=== PATIENT | male | born 1935 | race African-American/Black ===

== ENCOUNTER 2017-09-27 05:53 | Inpatient (IN) ==
[2017-09-28 11:55] VITALS: BP 135/69
== END 2017-09-28 13:45 | disposition home health service (06) | DRG 483 ==
LOC: N.OR 05:53 → N.SDSINP 05:55 → N.3E 07:21
PROVIDERS: ADMIT Orthopaedic Surgery; ATTEND Orthopaedic Surgery

== ENCOUNTER 2022-04-21 03:34 | Inpatient (IN) ==
[2022-04-21] MEDS ORDERED: SODIUM CHLORIDE 0.9% 1,000 ML IV STA (03:53)
[2022-04-21] MEDS ORDERED: PANTOPRAZOLE 40 MG VIAL IV STA (03:53)
[2022-04-21] MEDS ORDERED: methylPREDNISolone SOD SUC 125 MG/2 ML VIAL IV STA (03:53)
[2022-04-21] MEDS ORDERED: ONDANSETRON 4 MG/2 ML VIAL IV STA (03:53)
[2022-04-21 04:30] LABS: Basophils % 0.1 % (0.0-0.8); Eosinophils # 0.1 10*3/uL (0.0-0.87); Eosinophils % 1.2 % (0.00-10.9); Hemoglobin 6.5 GM/DL (14.0-18.0); Immature Granulocytes % 1.2 %; Immature Granulocytes Absolute 0.08 #; Lymphocytes # 1.3 10*3/uL (1.4-4.0); Lymphocytes % 19.6 % (21.2-54.2); Mean Corpuscular HGB Conc 29.5 GM/DL (32-36); Mean Corpuscular Volume 97.8 FL (87-102); Mean Platelet Volume 9.4 FL (9.6-12.0); Monocytes # 1.2 10*3/uL (0.11-0.8); Monocytes % 17.5 % (1.7-12.7); Neutrophils % 60.4 % (38.7-73.9); Platelet Count 281 T/CUMM (130-400); Red Blood Count 2.25 MC/CUMM (3.8-5.5); Red Cell Distribution Width 15.2 % (9.3-17.3); White Blood Count 6.8 T/CUMM (4-12)
[2022-04-21] MEDS ORDERED: SODIUM CHLORIDE 0.9% 1,000 ML IV PRN (04:34)
[2022-04-21 04:46] LABS: INR 1.1; PT Patient Result 11.8 SECS (10.1-12.1)
[2022-04-21 05:02] LABS: Alanine Aminotransferase 22 U/L (16-61); Albumin 1.7 G/DL (3.4-5.0); Alkaline Phosphatase 44 U/L (45-117); Aspartate Amino Transferase 25 U/L (0-37); Bilirubin,Total < 0.39 MG/DL (0.20-1.00); Blood Urea Nitrogen 61 MG/DL (7-18); Calcium 9.2 MG/DL (8.5-10.1); Carbon Dioxide 22 MMOL/L (21-32); Chloride 106 MMOL/L (98-107); Glucose 111 MG/DL (74-106); Lymphocytes 17 % (20-55); Osmolality,Calculated 287.1 MOS/KG (273-304); Potassium 4.4 MMOL/L (3.5-5.1); Sodium 135 MMOL/L (136-145); Total Cells Counted 100; Total Protein 5.4 G/DL (6.4-8.2)
[2022-04-21 05:03] LABS: Hypochromia Slight
[2022-04-21 05:04] LABS: Platelet Estimate Normal
[2022-04-21] MEDS ORDERED: ACETAMINOPHEN 325 MG TABLET PO PRN (05:56)
[2022-04-21] MEDS ORDERED: MORPHINE 2 MG/1 ML SYRINGE IV PRN (05:56)
[2022-04-21] MEDS ORDERED: ONDANSETRON 4 MG/2 ML VIAL IV PRN (05:56)
[2022-04-21 13:49] LABS: Hematocrit 28.8 VOL% (42.0-52.0); Hemoglobin 9.1 GM/DL (14.0-18.0)
[2022-04-21] MEDS: methylPREDNISolone SOD SUC 40 MG/1 ML VIAL IV SCH ×2 (14:28→20:47)
[2022-04-21] MEDS: RIVASTIGMINE 4.6 MG/24 HR PATCH TRANSDERM SCH (16:17)
[2022-04-21] MEDS: PANTOPRAZOLE 40 MG VIAL IV SCH (20:48)
[2022-04-21 22:00] LABS: Hematocrit 30.8 VOL% (42.0-52.0); Hemoglobin 9.8 GM/DL (14.0-18.0)
[2022-04-22] MEDS: methylPREDNISolone SOD SUC 40 MG/1 ML VIAL IV SCH ×3 (04:06→20:57)
[2022-04-22 04:50] LABS: Basophils % 0.1 % (0.0-0.8); Hematocrit 31.3 VOL% (42.0-52.0); Hemoglobin 9.8 GM/DL (14.0-18.0); Immature Granulocytes % 2.5 %; Immature Granulocytes Absolute 0.23 #; Lymphocytes # 0.8 10*3/uL (1.4-4.0); Mean Corpuscular HGB Conc 31.3 GM/DL (32-36); Mean Corpuscular Volume 92.6 FL (87-102); Mean Platelet Volume 9.9 FL (9.6-12.0); Monocytes # 0.2 10*3/uL (0.11-0.8); Neutrophils % 86.4 % (38.7-73.9); Platelet Count 323 T/CUMM (130-400); Red Blood Count 3.38 MC/CUMM (3.8-5.5); Red Cell Distribution Width 16.3 % (9.3-17.3); White Blood Count 9.1 T/CUMM (4-12)
[2022-04-22 05:04] LABS: Calcium 9.8 MG/DL (8.5-10.1); Osmolality,Calculated 291.8 MOS/KG (273-304)
[2022-04-22 06:22] LABS: Band Neutrophils 1 % (0-10); Hypochromia Slight; Lymphocytes 15 % (20-55); Microcytosis Slight; Platelet Estimate Adequate; Total Cells Counted 100
[2022-04-22 06:24] LABS: Hematocrit 31.6 VOL% (42.0-52.0); Hemoglobin 10.1 GM/DL (14.0-18.0)
[2022-04-22] MEDS: RIVASTIGMINE 4.6 MG/24 HR PATCH TRANSDERM SCH (09:08)
[2022-04-22] MEDS: PANTOPRAZOLE 40 MG VIAL IV SCH ×2 (09:08→20:59)
[2022-04-23] MEDS: methylPREDNISolone SOD SUC 40 MG/1 ML VIAL IV SCH (04:55)
[2022-04-23] MEDS: PANTOPRAZOLE 40 MG VIAL IV SCH ×2 (08:54→21:46)
[2022-04-23] MEDS: RIVASTIGMINE 4.6 MG/24 HR PATCH TRANSDERM SCH (08:54)
[2022-04-23 11:26] LABS: Basophils % 0.2 % (0.0-0.8); Hematocrit 32.4 VOL% (42.0-52.0); Hemoglobin 10.2 GM/DL (14.0-18.0); Immature Granulocytes Absolute 0.64 #; Lymphocytes # 0.9 10*3/uL (1.4-4.0); Lymphocytes % 7.1 % (21.2-54.2); Mean Corpuscular HGB Conc 31.5 GM/DL (32-36); Mean Corpuscular Volume 91.5 FL (87-102); Mean Platelet Volume 9.8 FL (9.6-12.0); Monocytes # 0.5 10*3/uL (0.11-0.8); Monocytes % 3.9 % (1.7-12.7); Neutrophils % 83.8 % (38.7-73.9); Platelet Count 353 T/CUMM (130-400); Red Blood Count 3.54 MC/CUMM (3.8-5.5); White Blood Count 12.7 T/CUMM (4-12)
[2022-04-23 11:45] LABS: Band Neutrophils 1 % (0-10); Lymphocytes 6 % (20-55); Platelet Estimate Adequate; Total Cells Counted 100
[2022-04-23] MEDS: predniSONE 20 MG TABLET PO SCH ×2 (15:43→21:46)
[2022-04-24 06:41] LABS: Basophils # 0.1 10*3/uL (0.0-0.2); Basophils % 0.4 % (0.0-0.8); Hematocrit 30.2 VOL% (42.0-52.0); Hemoglobin 9.2 GM/DL (14.0-18.0); Immature Granulocytes % 7.6 %; Mean Corpuscular HGB Conc 30.5 GM/DL (32-36); Mean Corpuscular Volume 93.8 FL (87-102); Monocytes # 0.9 10*3/uL (0.11-0.8); Monocytes % 7.3 % (1.7-12.7); Neutrophils % 76.7 % (38.7-73.9); Platelet Count 318 T/CUMM (130-400); Red Blood Count 3.22 MC/CUMM (3.8-5.5); Red Cell Distribution Width 15.8 % (9.3-17.3); White Blood Count 11.9 T/CUMM (4-12)
[2022-04-24 07:06] LABS: Lymphocytes 5 % (20-55); Total Cells Counted 100
[2022-04-24 07:07] LABS: Hypochromia Slight; Microcytosis Slight; Platelet Estimate Adequate
[2022-04-24 07:08] LABS: Calcium 9.5 MG/DL (8.5-10.1); Osmolality,Calculated 299.5 MOS/KG (273-304); Potassium 4.3 MMOL/L (3.5-5.1)
[2022-04-24] MEDS: predniSONE 20 MG TABLET PO SCH ×2 (10:10→15:05)
[2022-04-24] MEDS: PANTOPRAZOLE 40 MG VIAL IV SCH (10:10)
[2022-04-24] MEDS: RIVASTIGMINE 4.6 MG/24 HR PATCH TRANSDERM SCH (10:10)
[2022-04-24 10:51] VITALS: BP 173/87
[2022-04-24] MEDS ORDERED: amLODIPine 5 MG TABLET PO ONE (12:23)
[2022-04-24 12:42] LABS: % Iron Saturation 48.7 % (18-50)
[2022-04-24 12:47] LABS: Folate 23.47 NG/ML (5.38-24.0)
[2022-04-25] MEDS ORDERED: amLODIPine 5 MG TABLET PO SCH (09:00)
== END 2022-04-24 15:22 | disposition home health service (06) | DRG 386 ==
LOC: SUATTDRO → N.ED 03:34 → SUATTDRO 05:56 → N.EDINP 05:56 → N.3E 08:31
PROVIDERS: ADMIT Internal Medicine; ATTEND Internal Medicine